=== PATIENT | female | born 1950 | race Caucasian/White ===

== ENCOUNTER 2017-05-29 18:24 | Emergency (ER) | payer MEDICARE ==
[~2017-05-29] VITALS: Ht 175.3 cm; Wt 78.4 kg
[2017-05-29] MEDS ORDERED: ONDANSETRON 2MG/ML, 2ML IVPush ONE ×2 (19:00→19:30)
[2017-05-29] MEDS ORDERED: SODIUM CHLORIDE 0.9% 1,000ML IV ONE ×2 (19:00→19:30)
[2017-05-29] MEDS ORDERED: ONDANSETRON 2MG/ML, 2ML ONE (19:05)
[2017-05-29] MEDS ORDERED: LEVO137T2 PO (19:23)
[2017-05-29] MEDS ORDERED: OMEP1CAP24 PO (19:23)
[2017-05-29] MEDS ORDERED: AMLO2.5T PO (19:23)
[2017-05-29] MEDS ORDERED: LOSA25TA5 PO (19:23)
[2017-05-29] MEDS ORDERED: DIAZEPAM 5 MG/ML, 2ML IVPush ONE (19:30)
[2017-05-29] MEDS ORDERED: SODIUM CHLORIDE FLUSH 10ML SYR IVF ONE (19:30)
[2017-05-29] MEDS ORDERED: HYDROmorphone 1 MG/ML, 1ML IVPush PRN (19:30)
[2017-05-29 19:47] LABS: HEMATOCRIT 40.9 % (34.6-47.8); WHITE BLOOD COUNT 5.6 x10^3/uL (3.4-10)
[2017-05-29 19:58] LABS: BLOOD UREA NITROGEN 34 mg/dL (7-18)
[2017-05-29 20:04] LABS: ASPARTATE AMINO TRANSFERASE 23 U/L (15-37)
[2017-05-29 20:20] LABS: PATH.CAST-FLAG NOT PRESENT; SPERM-FLAG NOT PRESENT; SRC-FLAG NOT PRESENT; XTAL-FLAG NOT PRESENT; YLC-FLAG NOT PRESENT
[2017-05-29] MEDS ORDERED: HYDROmorphone 1 MG/ML, 1ML ONE (20:40)
[2017-05-29 21:11] VITALS: BP 125/95
== END 2017-05-29 22:13 | disposition home or self-care (01) ==
LOC: ED 19:01
DX: M54.5 Low back pain (principal); G89.29 Other chronic pain; R11.2 Nausea with vomiting, unspecified; I10 Essential (primary) hypertension; K21.9 Gastro-esophageal reflux disease without esophagitis; E03.9 Hypothyroidism, unspecified; Z88.5 Allergy status to narcotic agent
CPT/HCPCS: 36415; 74176; 80053; 81001; 83690; 85025; 96361; 96374; 96375; 99285; J1170; J2405; J3360; J7030